=== PATIENT | male | born 1995 | race Caucasian/White ===

== ENCOUNTER 2017-06-29 00:35 | Emergency (ER) | payer MEDICAID, OTHER ==
[~2017-06-29] VITALS: Ht 180.3 cm; Wt 77.0 kg
[~2017-06-29 00:35] MED LIST: HYDR7.5S PO
[2017-06-29 00:37] VITALS: BP 139/85; PULSE 79; RESP 16; TEMP 98.4; O2SAT 99
[2017-06-29 03:30] VITALS: BP_SYST 118; BP_SYST 129; BP_DIAS 65; BP_DIAS 72; RESP 16
--- NOTE | 2017-06-29 03:58 | PD ---
HPI Chief Complaint: Chest Pain Time Seen by Provider: 02:15 Travel History International Travel<30 days: No Contact w/Intl Traveler<30days: No History of Present Illness HPI Patient is a 22-year-old male who was driving home from work when he felt bilateral face flushing tingling it was doubly bilateral symmetric denies any visual changes denies shortness of breath denies any other complaints. It's last few days he's had substernal chest pain that comes and goes. The feeling in his face he said he has had prior usually lasts an hour at most and then goes away. However the feeling in his face lasted for a few hours and continued all the way until he arrived in the ER. By the time I arrived in the ER exam room he says all his symptoms have resolved he took nothing for this is all no other doctor for this. He denies any family history of coagulopathies he denies any family history of idiopathic hypertrophy a septal no HISS no sudden cardiac in the family. Patient denies any history of anxiety as well. PFSH Past Medical History Medical History: Denies Significant Hx Cancer: No Cardiovascular Problems: No Diabetes: No Endocrine: No Genitourinary: No Immune Disorder: No Musculoskeletal: No Neurologic: No Psychiatric: No Reproductive: No Respiratory: No Immunizations Current: Yes Thyroid Disease: No Social History Alcohol Use: Yes (weekly) Tobacco Use: Yes (1PPD) Substance Use: No Allergies-Medications (Allergen,Severity, Reaction): Coded Allergies: No Known Allergies (Unverified Adverse Reaction, Unknown, 06/29/17) Reported Meds & Prescriptions Reported Meds & Active Scripts Active Reported Hydrocodone/Acetaminophen 7.5 mg/325 mg/15 ml 7.5 mg/325 mg/15 ml Brenna 15 Ml PO Q6H PRN 7 Days Review of Systems Except as stated in HPI: all other systems reviewed are Neg (tingling sensation on the entire face as well as bilateral hands as well as substernal) Physical Exam Narrative GENERAL: Patient is no acute distress awake alert vital signs within normal limits SKIN: Warm and dry. HEAD: Atraumatic. Normocephalic. EYES: Pupils equal and round. No scleral icterus. No injection or drainage. ENT: No nasal bleeding or discharge. Mucous membranes pink and moist. NECK: Trachea midline. No JVD. CARDIOVASCULAR: Regular rate and rhythm. Orthostatic vital signs were normal blood pressure 129/72 RESPIRATORY: No accessory muscle use. Clear to auscultation. Breath sounds equal bilaterally. GASTROINTESTINAL: Abdomen soft, non-tender, nondistended. Hepatic and splenic margins not palpable. MUSCULOSKELETAL: Extremities without clubbing, cyanosis, or edema. No obvious deformities. NEUROLOGICAL: Awake and alert. No obvious cranial nerve deficits. Motor grossly within normal limits. Five out of 5 muscle strength in the arms and legs. Normal speech. Full neuro exam normal shoulder shrug equal smile symmetrical sensation in face legs and arms symmetrical no deep decrease in sensation swamper strength 5 out of 5 in his upper bilateral leg bilateral normal heel to gary normal bilateral PSYCHIATRIC: Appropriate mood and affect; insight and judgment normal. Data Data Last Documented VS Vital Signs Date Time Temp Pulse Resp B/P (MAP) Pulse Ox O2 Delivery O2 Flow Rate FiO2 06/29/17 04:05 06/29/17 03:30 65 16 75 16 77 16 06/29/17 00:37 98.4 99 Room Air Orders Orders Electrocardiogram (06/29/17 ) Ed Discharge Order (06/29/17 03:53) [facility] Medical Decision Making Medical Screen Exam Complete: Yes Emergency Medical Condition: Yes Differential Diagnosis cardiac vs neurologic causes of his facial flushing tingling , vs heat exhaustion vs anxiety Narrative Course ekg normal and exam and HPI not worrisome safe for discharge with outpt follow up Diagnosis Primary Impression: Facial flushing Additional Impression: Facial tingling sensation Atul Rivera MD Jun 29, 2017 03:58
--- NOTE | 2017-06-29 19:39 | EKG ---
Date Performed: 06/29/2017 Time Performed: 00:52:41 PTAGE: 22 years EKG: Sinus rhythm POSSIBLE RIGHT VENTRICULAR CONDUCTION DELAY BORDERLINE ECG NO PREVIOUS TRACING DOCTOR: Millie Bo Interpretating Date/Time 06/29/2017 19:38:28
== END 2017-06-29 04:20 | disposition home or self-care (01) ==
LOC: NEPE 00:35
DX: R07.2 Precordial pain (principal); R20.2 Paresthesia of skin
CPT/HCPCS: 93005; 99283